=== PATIENT | male | born 1945 | race African-American/Black ===

== ENCOUNTER 2017-02-18 15:10 | Emergency (ER) | payer OTHER, MEDICARE ==
[~2017-02-18] VITALS: Ht 172.7 cm; Wt 71.7 kg
[2017-02-18 15:14] VITALS: BP 162/88
[2017-02-18] MEDS ORDERED: LIPITOR80 M1 PO (15:37)
[2017-02-18] MEDS ORDERED: FINASTERIDE5 M1 PO (15:37)
[2017-02-18] MEDS ORDERED: FLOMAX0.4 M1 PO (15:37)
[2017-02-18] MEDS ORDERED: ASPIRIN EC81 M1 PO (15:38)
--- NOTE | 2017-02-18 15:42 | RADIOLOGY REPORT ---
EXAMINATION: XR SHOULDER, RIGHT CLINICAL INFORMATION: Shoulder pain COMPARISON: None TECHNIQUE: 4 views. of the right shoulder. FINDINGS: There is spur at the acromioclavicular joint at the superior margin of the joint involving both the clavicle and acromion. This spurring causes bulging the skin line. There is no erosion. The glenohumeral joint is normal. No soft tissue calcification. IMPRESSION: Degenerative spurring of the acromioclavicular joint. Normal glenohumeral joint.
--- NOTE | 2017-02-18 15:48 | ED UPPER/LOWER EXTREMITY COMPL ---
History of Present Illness General Chief Complaint: Shoulder Injury Stated Complaint: PER PT "I THINK I TORN SOMETHING IN MY R SHOULDER" Source: patient, old records Exam Limitations: no limitations Vital Signs & Intake/Output Vital Signs & Intake/Output Vital Signs Date Time Temp Pulse Resp B/P B/P Pulse O2 O2 Flow FiO2 Mean Ox Delivery Rate 02/18 1514 98.6 64 18 162/88 98 Room Air Allergies Coded Allergies: No Known Allergies (02/18/17) Reconcile Medications Aspirin (Ecotrin*) 81 MG TABLET.DR 1 TAB PO DAILY HEART/BLOOD (Reported) Atorvastatin Calcium (Lipitor) 80 MG TABLET 0.5 TAB PO DAILY CHOLESTEROL ( Reported) Finasteride 5 MG TABLET 1 TAB PO DAILY PROSTATE (Reported) Tamsulosin HCl (Flomax) 0.4 MG CAP.ER.24H 1 CAP PO DAILY PROSTATE (Reported) Triage Note: 71 YO MALE TO TRIAGE C/O R SIDED SHOULDER PAIN S/P LIFTING A BOX TODAY, STATES "I HEARD A SNAP" PT ABLE TO MOVE EXTREMTITY Triage Nurses Notes Reviewed? yes Onset: Abrupt Duration: day(s): (1), constant Timing: recent history Severity: mild, moderate Severity Numbers: 5 Pain/Injury Location: Right: Shoulder. Method of Injury: LIFTING Modifying Factors: Improves With: rest. Worsens With: movement. Associated Symptoms: none HPI: 71-year-old male presents to ER for evaluation complaining of right lateral shoulder pain for the past 1 hour after he states he was lifting a box and felt a pop in his righT shoulder. He is right-hand dominant. He denies fall there is no other injury the pain is nonradiating is not taken anything for his symptoms however is medicated ibuprofen in triage without change. Pain is 7 out of 10 nonradiating worse with movement. He denies any elbow wrist or hand pain no numbness or tingling no neck back pain no chest pain or shortness of breath (FRANTZ AMATO,JOSÉ MIGUEL) Past History Travel History Traveled to [place] past 21 day No Medical History Any Pertinent Medical History? see below for history Neurological: NONE EENT: NONE Cardiovascular: hyperlipidemia Respiratory: NONE Gastrointestinal: NONE Hepatic: NONE Renal: ENLARGED PROSTATE Musculoskeletal: NONE Psychiatric: NONE Endocrine: NONE Blood Disorders: NONE Cancer(s): NONE DISPATCHER TOW TRUCK/Reproductive: NONE Surgical History Surgical History: none Psychosocial History What is your primary language Bruneian Tobacco Use: Never used Family History Hx Contributory? No (JOSÉ MIGUEL GONZALEZ) Review of Systems Review of Systems Constitutional: Reports: see HPI. All Other Systems: Reviewed and Negative Comments Review of systems: See HPI, All other systems negative. Constitutional, no chills no fever, no malaise HEENT: No visual changes no sore throat no congestion Cardiovascular: No chest pain , no palpitation Skin: no rashes, no change in skin Respiratory: No dyspnea no cough no sputum GI: No nausea no vomiting, : No dysuria Muscle skeletal: joint pain, no joint swelling, no back pain, no neck pain, Neurologic: no headache Psych: No stress Heme/endocrine: No bruising Immunology: No lymphadenopathy (JOSÉ MIGUEL GONZALEZ) Physical Exam Physical Exam General Appearance: well developed/nourished, no apparent distress, alert Comments: Well-developed well-nourished patient in no apparent distress. HEENT: Atraumatic, extraocular motion intact Neck: Supple, FROM Back: FROM Cardiovascular: Regular rate and rhythms no murmurs Respiratory: Chest nontender.There were no bony deformities, no asymmetry. No respiratory distress. Patient speaking in full complete sentences. Breath sounds clear to auscultation bilaterally: NO W/R/R Shoulder: Atraumatic/Stable. Limited range of motion secondary to pain no deformity no ecchymosis or swelling Elbow: Atraumatic/stable. FROM. No laxity Upper arm/Forearm: Atraumatic. Nontender. 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 Skin intact. FROM Pulses: Normal/equal radial pulses bilaterally. Brisk cap refill Lower Extremities: full range of motion Neuro: awake, alert, and oriented to person, place and time. There were no obvious focal neurologic abnormalities. Skin: Warm & dry;No appreciable rash on exposed skin Psych: Mood affect normal, normal memory normal judgment. (JOSÉ MIGUEL GONZALEZ) Progress Differential Diagnosis: contusion, dislocation, fracture, sprain, tendon injury Plan of Care: X-ray was ordered from triage Sling provided I discussed with the patient at length all of their results. I had an extensive conversation regarding need for close follow up with orthopedist this week as well as return precautions. I answered all of their questions, they feel comfortable with the plan and follow-up care. Diagnostic Imaging: Viewed by Me: Radiology Read. Discussed w/RAD: Radiology Read. Radiology Impression: PATIENT: DYLON DESIR SR PRESENT AGE: 71 PATIENT ACCOUNT NO: [id number] : 44 LOCATION: [facility] ORDERING PHYSICIAN: JOSÉ MIGUEL AMATO SERVICE DATE: 02/18/17-1516 EXAM TYPE: RAD - XRY-SHOULDER COMPLETE-RIGHT EXAMINATION: XR SHOULDER, RIGHT CLINICAL INFORMATION: Shoulder pain COMPARISON: None TECHNIQUE: 4 views. of the right shoulder. FINDINGS: There is spur at the acromioclavicular joint at the superior margin of the joint involving both the clavicle and acromion. This spurring causes bulging the skin line. There is no erosion. The glenohumeral joint is normal. No soft tissue calcification. IMPRESSION: Degenerative spurring of the acromioclavicular joint. Normal glenohumeral joint. DICTATED BY: EDDIE MG MD DATE/TIME DICTATED:02/18/171535 DIRECTOR MEDICAL WRITING:SHANIQUA DATE/TIME TRANSCRIBED:02/18/171535 CONFIDENTIAL, DO NOT COPY WITHOUT APPROPRIATE AUTHORIZATION. <Electronically signed in Other Vendor System> SIGNED BY: EDDIE MG MD 02/18/17 1542 (JOSÉ MIGUEL GONZALEZ) Departure Departure Time of Disposition: 1553 Disposition: HOME OR SELF CARE Condition: Stable Clinical Impression Primary Impression: Shoulder sprain Referrals: WILFREDO LOPEZ,RAJ GABRIEL MD,FELIPA Pina (PCP/Family) Additional Instructions: REST, ICE, TYLENOL ORMOTRIN FOR PAIN. FOLLOW UP WITH ORTHOPEDIST DR VILLALOBOS THIS WEEK. SLING FOR COMFORT. RETURN TO THE ER WITH ANY CONCERNS Departure Forms: Customer Survey General Discharge Information (JOSÉ MIGUEL GONZALEZ) PA/MANAGER STERILE Co-Sign Statement Statement: ED Attending supervision documentation- [] I saw and evaluated the patient. I have also reviewed all the pertinent lab results and diagnostic results. I agree with the findings and the plan of care as documented in the PA's/MANAGER STERILE's documentation. [X] I have reviewed the ED Record and agree with the PA's/MANAGER STERILE's documentation. [] Additions or exceptions (if any) to the PAs/MANAGER STERILE's note and plan are summarized below: [] (JANICE ANSARI DO
== END 2017-02-18 16:04 ==
LOC: ERH 15:10
DX: S43.401A Unspecified sprain of right shoulder joint, initial encounter (principal); X50.0XXA Overexertion from strenuous movement or load, initial encounter; Y93.89 Activity, other specified; Y92.9 Unspecified place or not applicable
CPT/HCPCS: 73030-RT